=== PATIENT | female | born 1975 | race African-American/Black ===

== ENCOUNTER 2017-03-06 09:25 | Emergency (ER) | payer MEDICARE ==
[~2017-03-06] VITALS: Ht 170.2 cm; Wt 125.0 kg
[~2017-03-06 09:25] MED LIST: ADDERALL10 MG OR; ADDERALL10 MG PO; AMOXICILLIN500 MG PO; AYGESTIN5 MG OR; CALTRATE 600 OR; CIPROFLOXACN500 MG PO; CLARITHROMYC500 M2 PO; CLARITIN10 M1 PO; DIFLUCAN150 MG PO; EFFEXOR75 MG PO; ESTRADIOL1 MG PO; FIORICE1 PO; FLEXERIL PO; GABAPENTIN300 MG PO; KLONOPIN0.5 MG PO; LORTAB 5 OR; NAPROSYN500 MG PO; OMEPRAZOLE20 M2 PO; TORADOL PO; ULTRAM50 M1 OR; ULTRAM50 M1 PO; VENLAFAXINE HCL75 M1 PO; ZITHROMAX250 MG OR; ZOFRAN4 MG/TAB PO
[2017-03-06] MEDS ORDERED: PENICILLN VK500 MG PO (09:45)
[2017-03-06 09:51] VITALS: BP 135/80
[2017-03-06] MEDS ORDERED: DOXYCYCLINE100 MG PO (10:08)
== END 2017-03-06 10:00 | disposition home or self-care (01) ==
LOC: ED 09:25
DX: J02.9 Acute pharyngitis, unspecified (principal); R09.81 Nasal congestion; J34.89 Other specified disorders of nose and nasal sinuses

== ENCOUNTER 2022-07-06 06:58 | Day surgery (SDC) | payer MEDICARE ==
[~2022-07-06] VITALS: Ht 172.7 cm; Wt 111.6 kg
[~2022-07-06 06:58] MED LIST changes: +ADDERALL XR10 MG PO; +DOXYCYCLINE100 MG PO; +DRIZALMA SPRINK30 MG PO; +KLONOPIN1 MG PO; +PENICILLN VK500 MG PO; +TOPAMAX50 M1 PO
[2022-07-06 08:52] VITALS: BP 129/90
== END 2022-07-06 09:00 | disposition home or self-care (01) ==
LOC: ENDO 06:58 → ORM 11:00
PROVIDERS: ATTEND Surgery
PROC: 0DBC8ZX Excision of Ileocecal Valve, Via Natural or Artificial Opening Endoscopic, Diagnostic (ICD-10-PCS; principal; 2022-07-06)
DX: D12.0 Benign neoplasm of cecum (principal); K64.8 Other hemorrhoids; F41.9 Anxiety disorder, unspecified; F32.A Depression, unspecified

== ENCOUNTER 2022-07-31 12:31 | Inpatient (IN) | payer MEDICARE ==
[~2022-07-31] VITALS: Ht 172.7 cm; Wt 111.1 kg
[2022-08-01] VITALS (12 sets, daily range): BP systolic 103–119; BP diastolic 55–69
[2022-08-02 01:10] VITALS: BP 116/68
[2022-08-02 03:46] VITALS: BP 114/65
[2022-08-02 05:44] LABS: BASO% 0.3 % (0-3); EOS% 0.2 % (0-8); HEMATOCRIT 33.5 % (37.0-47.0); HEMOGLOBIN 10.4 g/dl (12.0-16.0); IMMATURE GRANULOCYTES 0.2 % (0.0-5.0); LYMPH% 17.8 % (15-41); MEAN CELL VOLUME 79.8 fL CALC (80.0-100.0); MEAN CORPUSCULAR HGB 24.8 pG CALC (26.0-32.0); MONO% 6.6 % (2-13); NEUT# 7.78 thou/uL (2.00-7.15); NEUT% 74.9 % (42-76); RED BLOOD COUNT 4.2 mill/uL (4.20-5.60); RED CELL DISTRI WIDTH 15.6 % (11.5-15.5)
[2022-08-02 05:55] LABS: ALBUMIN 3.5 g/dL (3.2-5.0); ALKALINE PHOSPHATASE 56 u/l (38-126); ANION GAP 8 (6-22 (CALC)); BUN 6 mg/dL (7-17); BUN/CREATININE RATIO 8 (12-20 (CALC)); CARBON DIOXIDE 27 mmol/l (22-30); CHLORIDE 106 mmol/l (95-108); CREATININE 0.8 mg/dL (0.5-1.0); GFR FOR AFR.AMER. > 60 ML/MIN (>=60 (CALC)); GFR OTHER RACES > 60 ML/MIN (>=60 (CALC)); POTASSIUM 3.9 mmol/l (3.5-5.1); SGOT/AST 29 u/l (14-36); SODIUM 136 mmol/l (137-146); TOTAL PROTEIN 6.4 g/dL (6.3-8.2)
[2022-08-02 05:58] LABS: BILIRUBIN, TOTAL 0.3 mg/dL (0.02-1.3)
[2022-08-02 07:19] VITALS: BP 141/92
[2022-08-02 11:28] VITALS: BP 114/62
[2022-08-02 15:25] VITALS: BP 110/67
[2022-08-02 19:08] VITALS: BP 108/63
[2022-08-03 04:03] VITALS: BP 103/66
[2022-08-03 06:22] VITALS: BP 115/69
[2022-08-03 16:17] VITALS: BP 112/74
[2022-08-03 19:40] VITALS: BP 123/69
[2022-08-04 04:00] VITALS: BP 104/64
[2022-08-04 05:16] LABS: BASO% 0.1 % (0-3); EOS% 2.4 % (0-8); HEMATOCRIT 33.7 % (37.0-47.0); HEMOGLOBIN 10.3 g/dl (12.0-16.0); LYMPH% 30.9 % (15-41); MEAN CELL VOLUME 81.2 fL CALC (80.0-100.0); MEAN CORPUSCULAR HGB 24.8 pG CALC (26.0-32.0); MEAN CORPUSCULAR HGB CONC 30.6 g/dL CAL (32.0-36.0); NEUT# 3.9 thou/uL (2.00-7.15); NEUT% 57.6 % (42-76); RED BLOOD COUNT 4.15 mill/uL (4.20-5.60); RED CELL DISTRI WIDTH 15.7 % (11.5-15.5)
[2022-08-04 05:26] LABS: ANION GAP 8 (6-22 (CALC)); BUN 3 mg/dL (7-17); BUN/CREATININE RATIO 4 (12-20 (CALC)); CARBON DIOXIDE 29 mmol/l (22-30); CHLORIDE 104 mmol/l (95-108); CREATININE 0.8 mg/dL (0.5-1.0); GFR FOR AFR.AMER. > 60 ML/MIN (>=60 (CALC)); GFR OTHER RACES > 60 ML/MIN (>=60 (CALC)); POTASSIUM 3.8 mmol/l (3.5-5.1); SODIUM 137 mmol/l (137-146)
[2022-08-04 07:25] VITALS: BP 133/78
[2022-08-04] MEDS ORDERED: LORTAB 7.57.5 MG PO (13:10)
== END 2022-08-04 15:26 | disposition home or self-care (01) | DRG 331 ==
LOC: MSOBS 08-01 09:30 → MS2 08-01 10:17
PROVIDERS: ADMIT Surgery; ATTEND Surgery
PROC: 0DTH0ZZ Resection of Cecum, Open Approach (ICD-10-PCS; principal; 2022-08-01)
DX: D12.0 Benign neoplasm of cecum (principal); F41.9 Anxiety disorder, unspecified; F32.A Depression, unspecified; M79.7 Fibromyalgia
CPT/HCPCS: J0131; J0690

== ENCOUNTER 2022-10-27 09:03 | Emergency (ER) | payer OTHER, MEDICARE ==
[~2022-10-27] VITALS: Ht 172.7 cm; Wt 113.3 kg
[2022-10-27] VITALS (8 sets, daily range): BP systolic 106–138; BP diastolic 69–99
[~2022-10-27 09:03] MED LIST changes: +LORTAB 7.57.5 MG PO; +TYLENOL & COD12.5 ML PO
[2022-10-27 09:27] LABS: BASO% 0.4 % (0-3); EOS% 1.2 % (0-8); IMMATURE GRANULOCYTES 0.1 % (0.0-5.0); LYMPH% 38.6 % (15-41); MEAN CELL VOLUME 78.9 fL CALC (80.0-100.0); MEAN CORPUSCULAR HGB 24.3 pG CALC (26.0-32.0); MEAN CORPUSCULAR HGB CONC 30.8 g/dL CAL (32.0-36.0); NEUT# 3.97 thou/uL (2.00-7.15); NEUT% 50.7 % (42-76); RED BLOOD COUNT 5.22 mill/uL (4.20-5.60); RED CELL DISTRI WIDTH 15.8 % (11.5-15.5)
[2022-10-27 09:34] LABS: HEMATOCRIT 41.2 % (37.0-47.0); HEMOGLOBIN 12.7 g/dl (12.0-16.0)
[2022-10-27 09:58] LABS: ANION GAP 12 (6-22 (CALC)); BILIRUBIN, TOTAL 0.4 mg/dL (0.02-1.3); BUN 11 mg/dL (7-17); BUN/CREATININE RATIO 13 (12-20 (CALC)); CARBON DIOXIDE 27 mmol/l (22-30); CHLORIDE 105 mmol/l (95-108); CREATININE 0.8 mg/dL (0.5-1.0); GFR FOR AFR.AMER. > 60 ML/MIN (>=60 (CALC)); GFR OTHER RACES > 60 ML/MIN (>=60 (CALC)); SGOT/AST 30 u/l (14-36); SODIUM 140 mmol/l (137-146)
[2022-10-27 10:22] LABS: ALBUMIN 4.5 g/dL (3.2-5.0); ALKALINE PHOSPHATASE 91 u/l (38-126); TOTAL PROTEIN 8.1 g/dL (6.3-8.2)
== END 2022-10-27 12:49 | disposition home or self-care (01) | DRG 103 ==
LOC: ED 09:03
PROVIDERS: Family Medicine
DX: R51.9 Headache, unspecified (principal); E66.01 Morbid (severe) obesity due to excess calories

== ENCOUNTER 2023-04-21 06:45 | Emergency (ER) | payer MEDICARE, OTHER ==
[~2023-04-21] VITALS: Ht 172.7 cm; Wt 114.0 kg
[2023-04-21] VITALS (9 sets, daily range): BP systolic 111–133; BP diastolic 71–86
[2023-04-21] MEDS ORDERED: TAM75CAP PO (08:28)
== END 2023-04-21 08:55 | disposition home or self-care (01) ==
LOC: ED 06:45
DX: J10.1 Influenza due to other identified influenza virus with other respiratory manifestations (principal); G43.909 Migraine, unspecified, not intractable, without status migrainosus; Z20.822 Contact with and (suspected) exposure to COVID-19